=== PATIENT | male | born 1945 | race Caucasian/White ===

== ENCOUNTER 2017-06-21 10:58 | Emergency (ER) | payer OTHER ==
[~2017-06-21] VITALS: Ht 177.8 cm; Wt 59.0 kg
[2017-06-21] MEDS ORDERED: ATROPINE SYRINGE 0.1 MG/ML, 10ML ONE (11:32)
[2017-06-21] MEDS ORDERED: SODIUM BICARB 8.4%, 50ML SYRINGE ONE (11:32)
[2017-06-21] MEDS ORDERED: EPINEPHRINE SYRINGE 0.1 MG/ML, 10ML ONE (11:32)
== END 2017-06-21 12:14 | disposition expired ==
LOC: ED 11:04
DX: I46.9 Cardiac arrest, cause unspecified (principal); J44.9 Chronic obstructive pulmonary disease, unspecified; K21.9 Gastro-esophageal reflux disease without esophagitis; B19.20 Unspecified viral hepatitis C without hepatic coma
CPT/HCPCS: 92950; 99285; J0461